=== PATIENT | female | born 2000 | race Caucasian/White ===

== ENCOUNTER 2024-09-08 21:56 | Emergency (ER) | payer BC, SELFPAY ==
[2024-09-08 22:02] VITALS: BP 116/75; PULSE 106; RESP 17; TEMP 36.2; O2SAT 100; BMI 35.4
[2024-09-08 22:52] LABS: Amorphous Sediment Urine 1+; Bacteria Urine Many (>30); Culture Indicated Urine Cult Not Indicated; Mucus Urine 1+ (Negative); RBC Urine 0-1/HPF (0-5/HPF); Squamous Epithelial Cell Urine 10-30 /HPF (0-5/HPF); Urine Volume 10mL (spun); WBC Urine 1-5/HPF (0-5/HPF)
== END 2024-09-08 23:57 | disposition left against medical advice (07) ==
PROVIDERS: Emergency Provider Student in an Organized Health Care Education/Training Program
DX: R11.2 Nausea with vomiting, unspecified (principal); K21.9 Gastro-esophageal reflux disease without esophagitis
CPT/HCPCS: 81003; 81015; 81025; 99282

== ENCOUNTER 2024-09-15 14:43 | Emergency (ER) | payer BC, SELFPAY ==
[2024-09-15] VITALS (12 sets, daily range): BP systolic 102–130; BP diastolic 57–86; PULSE 64–103; RESP 16–24; TEMP 36.6; O2SAT 99–100; BMI 35.4
[2024-09-15 16:34] LABS: Appearance Urine UA CLEAR; Bilirubin Urine UA NEGATIVE (NEGATIVE); Color Urine UA YELLOW; Glucose Urine UA NEGATIVE (Negative); Ketones Urine UA NEGATIVE (NEGATIVE); Leukocyte Esterase Urine UA 3+ (NEGATIVE); Nitrite Urine UA NEGATIVE (Negative); Occult Blood Urine UA TRACE-INTACT (Negative); Protein Urine UA NEGATIVE (Negative); Specific Gravity Urine UA 1.015 (1.000-1.035)
[2024-09-15 17:03] LABS: Urine Volume Low Vol <10mL (spun)
[2024-09-15 17:04] LABS: Bacteria Urine Few (2-10); Culture Indicated Urine Specimen Cultured; RBC Urine 0-1/HPF (0-5/HPF); Squamous Epithelial Cell Urine 5-10 /HPF (0-5/HPF); WBC Urine 5-10/HPF (0-5/HPF)
[2024-09-15 18:04] LABS: Add Manual Diff / Slide Review NO; Basophils Absolute Auto 0 /uL (0-100); Basophils Percent Auto 0.5 % (0-2); Eosinophils Absolute Auto 200 /uL (0-450); Eosinophils Percent Auto 1.5 % (2-4); Hematocrit 36.3 % (36-46); Hemoglobin 12.3 g/dL (12.0-16.0); Lymphocytes Absolute Auto 4000 /uL (1100-4500); Lymphocytes Percent Auto 38.4 % (25-40); Mean Corpuscular Hemoglobin 29.4 PG (26-34); Mean Corpuscular Volume 86.6 fL (80-100); Monocytes Absolute Auto 700 /uL (0-900); Monocytes Percent Auto 6.9 % (3-14); Neutrophils Absolute Auto 5600 /uL (1500-7000); Neutrophils Percent Auto 52.7 % (50-75); Platelet Count 239 X10^3/uL (150-400); Red Blood Cell Count 4.19 X10^6/uL (4.0-5.2); Red Cell Distribution Width 14.7 % (11.6-14.8); White Blood Cell Count 10.5 X10^3/uL (4.5-11.0)
[2024-09-15] MEDS: ONDANSETRON 4 MG/2 ML INJ IV ×2 (18:05→19:24)
[2024-09-15] MEDS: KETOROLAC 30 MG/ML VIAL 15 MG IV (18:06)
--- NOTE | 2024-09-15 18:10 | ED_ITS ---
HPI - Abdominal Pain General Chief Complaint: Urogenital-Female Stated Complaint: Post Op appendix/extreme pain/nausea Time Seen by Provider: 09/15/24 16:53 Source: patient and family Mode of arrival: Wheelchair History of Present Illness HPI narrative: Patient is a 24-year-old female without any significant past medical history presents to the emergency department from home for evaluation of vaginal pain, she states that she had an appendectomy on , she states that she has tried vagisil, miconazole and fluconazole for any significant improvement to her symptoms. She states that her abdomen/incisional sites are fine, she states that she called the on-call doctor about her vaginal pain at 3 in the morning and the other ones who prescribed the fluconazole. She states that she is tried other creams without any relief but denies any known or past STI STDs. She describes the pain as burning and swelling. Patient denies any other symptoms at this time. Related Data Previous Rx's Medication Instructions Recorded acyclovir 400 mg tablet 400 mg PO TID 1 week #21 tabs 09/15/24 cephalexin 500 mg capsule 500 mg PO TID 7 days #21 caps 09/15/24 Allergies Allergy/AdvReac Type Severity Reaction Status Date / Time No Known Drug Allergies Allergy Verified 09/08/24 22:02 Review of Systems Review of Systems Narrative: General: Denies fever, chills, weight loss HEENT: Denies headache, eye drainage, eye irritation, head trauma, sore throat, voice change Cardiovascular: Denies any chest pain, palpitations, shortness of breath, tachycardia Respiratory: Denies any shortness of breath, cough, wheeze, stridor GI/: Positive vaginal pain. Denies any abdominal pain, nausea, vomiting, diarrhea, bright red blood per rectum, melanotic stools, urinary frequency, urinary retention, dysuria, hematuria MSK: Denies any joint pain, muscle pains, swelling Skin: Denies any rashes, lesions, discoloration Neuro: Denies any headache, lightheadedness, dizziness, fainting, weakness Psych: Denies SI/HI Patient History Social History Smoking Status: Former smoker Smoking Status: Former smoker Exam Narrative Exam Narrative: General: Cooperative, comfortable, well-developed, not in acute distress HEENT: Normocephalic, atraumatic, PERRLA, normal sclera, eyelids normal, Neck: Active full range of motion, atraumatic Chest: Normal to inspection, negative crepitus, no overlying erythema ecchymosis Respiratory: Normal respiratory effort, not in acute respiratory distress, clear to auscultation bilaterally negative cough, wheeze, tachypnea, rhonchi, rales Cardiology: Regular rate rhythm negative gallop, murmur, rubs GI/: Normal to inspection, soft, nonrigid, no tenderness to palpation, 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 MSK: Full range of active range of motion of all 4 extremities, atraumatic Skin: No rashes lesions noted Neuro: Alert awake oriented x3, moves all 4 extremities spontaneously, cranial nerves intact, able to answer all questions appropriately follows commands appropriately Psych: Cooperative, negative suicidal or homicidal ideations Initial Vital Signs Initial Vital Signs: Vital Signs Temperature 97.8 F 09/15/24 15:03 Pulse Rate 99 H 09/15/24 15:03 Respiratory Rate 18 09/15/24 15:03 Pulse Oximetry 99 09/15/24 15:03 Oxygen Delivery Method Room Air 09/15/24 15:03 Course Orders Ordered: ED Orders 09/15/24 16:11 Urinalysis and Microscopic Stat Urine Culture Stat 09/15/24 17:55 Complete Blood Count AUTO DIFF Stat Comprehensive Metabolic Panel Stat Lipase Stat Discontinued Medications Ketorolac Tromethamine (Ketorolac 30 Mg/Ml Vial) 15 mg IV NOW ONE Stop: 09/15/24 17:31 Last Admin: 09/15/24 18:06 Dose: 15 mg Documented By: VICTORINO Ondansetron HCl (Ondansetron 4 Mg/2 Ml Inj) 4 mg IV NOW ONE Stop: 09/15/24 17:31 Last Admin: 09/15/24 18:05 Dose: 4 mg Documented By: VICTORINO Vital Signs Vital signs: Vital Signs - 8 hr 09/15/24 15:03 09/15/24 15:10 Temperature 97.8 F Pulse Rate 99 H Respiratory Rate 18 Blood Pressure 130/86 Pulse Oximetry 99 Oxygen Delivery Method Room Air MDM - Abdominal Pain Differential Diagnosis Differential diagnosis: Likely other (HSV, urinary tract infection, postop pain) Lab Data 09/15/24 17:55 09/15/24 17:55 Labs: Lab Results 09/15/24 09/15/24 Range/Units 16:11 17:55 WBC 10.5 (4.5-11.0) X10^3/uL RBC 4.19 (4.0-5.2) X10^6/uL Hgb 12.3 (12.0-16.0) g/dL Hct 36.3 (36-46) % MCV 86.6 (80-100) fL MCH 29.4 (26-34) PG MCHC 34.0 (30-36) % RDW 14.7 (11.6-14.8) % Plt Count 239 (150-400) X10^3/uL Neut % (Auto) 52.7 (50-75) % Lymph % (Auto) 38.4 (25-40) % Mower % (Auto) 6.9 (3-14) % Eos % (Auto) 1.5 L (2-4) % Baso % (Auto) 0.5 (0-2) % Neut # (Auto) 5600 (0536-3509) /uL Lymph # (Auto) 4000 (9137-0468) /uL Mower # (Auto) 700 (0-900) /uL Eos # (Auto) 200 (0-450) /uL Baso # (Auto) 0 (0-100) /uL Urine Color Yellow Urine Appearance Clear Urine pH 6.0 (4.5-8.0) Ur Specific [place] 1.015 (1.000-1.035) Urine Protein Negative (Negative) Urine Glucose (UA) Negative (Negative) g/dL Urine Ketones Negative (NEGATIVE) Urine Occult Blood Trace-intact (Negative) Urine Nitrate Negative (Negative) Urine Bilirubin Negative (NEGATIVE) Urine Urobilinogen 1.0 (0.2) E.U./dL Ur Leukocyte Esterase 3+ H (NEGATIVE) Urine RBC 0-1/hpf (0-5/HPF) Urine WBC 5-10/hpf H (0-5/HPF) Ur Squamous Epith Cells 5-10 /hpf H (0-5/HPF) Urine Bacteria Few (2-10) H (None) Ur Culture Indicated? Specimen cultured Vol Urine Centrifuged Low vol <10ml (spun) A Point of care testing: Point of Care Testing Test Results Negative Urine Dip Bedside Urine Glucose 100 mg/dl Bedside Urine Bilirubin - Negative Bedside Urine Ketone - Negative Urine Specific [place] 1.010 Bedside Urine Occult Blood + Bedside Urine pH 6.0 Bedside Urine Protein +/- 15 Bedside Urine Urobilinogen - Negative Bedside Urine Nitrite - Negative Bedside Urine Leukocytes +++ 500 Esterase MDM Narrative Medical decision making narrative: Patient is a 24-year-old female who presents for vaginal pain after having appendectomy done on at [facility]. She states that her incisions have been fine but she started developing vaginal burning sensation a few days ago, did call the on-call doctor they prescribed fluconazole but the patient stating no improvement of symptoms. She has known known or past STIs SCDs states that she does not have any concerns for this today but is agreeable to have test sent out. On exam no lesions noted to the external genitalia or internal vaginal vault but does appear slightly erythematous, white discharge was noted no cervical motion tenderness cervix unremarkable. Patient will be prophylactically treated for HSV and urinary tract infection pending the results of her cultures, she was instructed follow up with OBGYN and PCP in outpatient setting she was given strict return precautions she verbalized understanding of this and agrees to being discharged home with outpatient follow up Discharge Plan Departure Patient Disposition: Home Clinical Impression: Vaginal pain, Urinary tract infection Activity Restrictions/Additional Instructions: Please follow up with OBGYN and primary care Please read the discharge instructions sheet carefully and bring all papers to all doctor follow-up visits, as it may contain information that your doctor may want to see. Disease processes change and evolve, if your symptoms worsen or if you develop any new symptoms that are concerning to you please return for evaluation. Your evaluation today does not show any evidence of any life- threatening/serious illnesses requiring admission to the hospital or surgery. Please follow-up with your doctor for re-evaluation in approximately 1 day. Seek immediate medical attention for any worrisome symptoms. *If you do not have a primary care provider please contact the [facility] Resource line at [phone]. They will ask some questions about your medical history and help get you set up with a doctor in the community. Prescriptions: New cephalexin 500 mg capsule 500 mg PO TID 7 Days Qty: 21 0RF acyclovir 400 mg tablet 400 mg PO TID 7 Days Qty: 21 0RF Stand Alone Forms: Patient Portal/API/Survey
[2024-09-15 18:16] LABS: Alanine Aminotransferase 54 IU/L (<35); Albumin Globulin Ratio 1.4 (1.0-2.8); Alkaline Phosphatase 57 U/L (38-126); Aspartate Aminotransferase 64 IU/L (14-36); BUN Creatinine Ratio 15.5 (6-22); Bilirubin Total 0.6 mg/dL (0.2-1.3); Blood Urea Nitrogen 11 mg/dL (7-17); Calcium 9.2 mg/dL (8.4-10.2); Carbon Dioxide 21 mmol/L (22-32); Chloride 110 mmol/L (98-107); Estimated Glomerular Filt Rate > 60 mL/min (>60); Globulin 2.9 g/dL (1.7-4.1); Glucose 72 mg/dL (70-100); HEMOLYSIS < 15 (0-50); Lipase 362 U/L (23-300); Potassium 3.1 mmol/L (3.4-5.1); Sodium 140 mmol/L (137-145); Total Protein 6.9 g/dL (6.3-8.2)
[2024-09-15] MEDS: OXYCODONE/APAP 5/325 PREPACK 1 BOTTLE MISC (19:24)
[2024-09-15] MEDS: ONDANSETRON 4 MG ODT PREPACK 1 BOTTLE MISC (19:24)
[2024-09-15] MEDS: MORPHINE 4 MG/ML INJ IV (19:24)
[2024-09-15] MEDS: cephALEXin 250 MG CAPSULE 500 MG PO (19:24)
[2024-09-15] MEDS: ACYCLOVIR 400 MG TABLET PO (19:31)
[2024-09-19 11:10] LABS: Chlamydia trachomatis Negative (Negative); Mycoplasma genitalium Negative (Negative); Neisseria gonorrhoeae Negative (Negative)
== END 2024-09-15 19:55 | disposition home or self-care (01) ==
PROVIDERS: Emergency Medicine; Emergency Provider Student in an Organized Health Care Education/Training Program
DX: R10.2 Pelvic and perineal pain (principal); N39.0 Urinary tract infection, site not specified
CPT/HCPCS: 36415; 80053; 81001; 81003; 81025; 83690; 85025; 87070; 87077; 87086; 87205; 87210; 87491; 87563; 87591; 96374; 96375; 96376; 99284; J1885; J2270; J2405